=== PATIENT | male | born 1955 | race Caucasian/White ===

== ENCOUNTER → 2024-10-31 | Outpatient (CLI) | payer OTHER, SELFPAY ==
--- NOTE | 2024-10-31 16:00 | XR_ITS ---
Examination: Breast ultrasound, unilateral, left Date and time of exam: October 31, 2024 1559 hours INDICATIONS: Left nipple pain several months, palpable lump left breast on clinical breast examination by provider several weeks ago Technique: Real-time velasco scale ultrasonographic imaging performed left breast including all 4 quadrants as well as nipple retroareolar and axillary region. Findings: Retroareolar probably benign glandular tissue 18 x 6 x 15 mm IMPRESSION: BI-RADS Category 3: Probably benign glandular tissue retroareolar region left breast, 3 month follow-up left breast sonography is needed
== END | disposition home or self-care (01) ==
PROVIDERS: PCP Family Medicine; Referring Provider Family Medicine; Visit Provider Family Medicine
DX: R92.2 Inconclusive mammogram (principal)
CPT/HCPCS: 76641

== ENCOUNTER → 2025-04-07 | Outpatient (CLI) | payer OTHER, SELFPAY ==
[2025-04-07 09:31] LABS: Collection Type, Urine Clean Catch
[2025-04-07 10:07] LABS: Anion Gap 9 (7-16); BUN/Creatinine Ratio 15 Ratio (12-20); Blood Urea Nitrogen 18 mg/dL (9-23); Calcium 9.4 mg/dL (8.3-10.6); Carbon Dioxide 26.9 mMol/L (20.0-31.0); Chloride 104 mMol/L (98-107); Creatinine (Component) 1.2 mg/dL (0.6-1.3); Glucose 163 mg/dL (74-106); Osmolality,Calculated 285 (275-295); Potassium 4.8 mMol/L (3.4-5.1); Sodium 140 mMol/L (136-145); eGFR > 60 See Note
[2025-04-07 10:09] LABS: Prostate Specific Antigen 0.13 ng/mL (0-4.00)
[2025-04-07 10:21] LABS: Creatinine MALB Rnd Ur 14 mg/dL (30-125); Microalbumin, Random Urine < 3 mg/L (0-300)
[2025-04-07 10:31] LABS: Bilirubin,Urine Negative (Negative); Blood,Urine Negative (Negative); Clarity,Urine Clear (Clear/Hazy); Color,Urine Colorless (Lt Yel-Yel); Glucose, Urine 4+ (Negative); Hyaline Casts,Urine < 1 /hpf (0-1); Ketones,Urine Negative (Negative); Leukocyte Esterase,Urine Negative (Negative); Nitrite,Urine Negative (Negative); PH,Urine 6.0 (5.0-7.0); Protein,Urine Negative (Neg - Trace); RBC,Urine 3 /hpf (0-3); Specific Gravity,Urine 1.005 (1.001-1.035); Squamous Epithelial Cell,Urine < 1 /hpf (0-5); Urobilinogen,Urine Negative mg/dL (0.0-1.0); WBC,Urine 1 /hpf (0-5)
== END | disposition home or self-care (01) ==
LOC: COPL 08:57
PROVIDERS: PCP Family Medicine; Referring Provider Family Medicine; Visit Provider Family Medicine
DX: E11.22 Type 2 diabetes mellitus with diabetic chronic kidney disease (principal); N18.31 Chronic kidney disease, stage 3a; E11.65 Type 2 diabetes mellitus with hyperglycemia
CPT/HCPCS: 36415; 80048; 81001; 82043; 82570; 84153

== ENCOUNTER → 2025-05-04 | Outpatient (CLI) | payer OTHER, SELFPAY ==
--- NOTE | 2025-05-04 16:00 | XR_ITS ---
Examination: Breast ultrasound, unilateral, left complete Date and time of exam: May 04, 2025, 1559 hours INDICATIONS: Left breast sonogram October 31, 2024 retroareolar probably benign glandular tissue 18 x 6 x 15 mm Technique: Real-time velasco scale ultrasonographic imaging performed left breast including all 4 quadrants as well as nipple retroareolar and axillary region. Findings: No cystic or solid mass noted IMPRESSION: BI-RADS Category 1: Negative study
== END | disposition home or self-care (01) ==
LOC: CDIM 15:40
PROVIDERS: PCP Family Medicine; Referring Provider Family Medicine; Visit Provider Family Medicine
DX: R92.2 Inconclusive mammogram (principal)
CPT/HCPCS: 76641

== ENCOUNTER → 2025-05-07 | Outpatient (CLI) | payer OTHER, SELFPAY ==
--- NOTE | 2025-05-07 10:30 | XR_ITS ---
EXAMINATION: Esophagram, standard Fluoroscopy 26 spot fluoroscopic films of the esophagus Upright PA chest single view Upright soft tissue lateral neck single view Date and time: May 07, 2025, 1028 hours INDICATIONS: Difficulty swallowing 6 months TECHNIQUE AND FINDINGS: Upright PA chest single view normal heart size lungs are clear Soft tissue lateral neck single view advanced degenerative disc disease C6-C7, prominent cervical spondylosis No distention hypopharynx 26 spot fluoroscopic films of the esophagus with the patient swallowing Numerous secondary and tertiary esophageal contractions Continuous moderate gastroesophageal reflux Small esophageal hernia No stricture at the gastroesophageal junction No constricting esophageal lesion IMPRESSION: Significant esophageal dysmotility including esophageal spasm Moderate continuous gastroesophageal reflux Small esophageal hernia
== END | disposition home or self-care (01) ==
LOC: SDIM 10:17
PROVIDERS: PCP Family Medicine; Referring Provider Family Medicine; Visit Provider Family Medicine
DX: K21.9 Gastro-esophageal reflux disease without esophagitis (principal); K44.9 Diaphragmatic hernia without obstruction or gangrene; K22.4 Dyskinesia of esophagus
CPT/HCPCS: 74220; A4649